=== PATIENT | male | born 1950 | race Caucasian/White ===

== ENCOUNTER 2018-01-03 20:11 | Emergency (ER) | payer MEDICARE, MEDICAID ==
[~2018-01-03] VITALS: Ht 180.3 cm; Wt 81.1 kg
[2018-01-03 20:15] VITALS: BP 155/98
== END 2018-01-03 20:56 | disposition home or self-care (01) ==
LOC: ED 20:50
DX: L60.0 Ingrowing nail (principal); F17.200 Nicotine dependence, unspecified, uncomplicated
CPT/HCPCS: 99281

== ENCOUNTER 2018-10-30 19:18 | Emergency (ER) | payer MEDICARE, MEDICAID ==
[~2018-10-30] VITALS: Ht 180.3 cm; Wt 83.5 kg
[2018-10-30 21:09] VITALS: BP 147/88
== END 2018-10-30 21:12 | disposition home or self-care (01) ==
LOC: ED 19:27
DX: M65.4 Radial styloid tenosynovitis [de Quervain] (principal)
CPT/HCPCS: 29125; 73110; 96372; 99283; J1885

== ENCOUNTER 2018-11-01 21:07 | Emergency (ER) | payer MEDICARE, MEDICAID ==
[~2018-11-01] VITALS: Ht 180.3 cm; Wt 83.5 kg
[2018-11-01 21:12] VITALS: BP 138/92
== END 2018-11-01 22:39 | disposition home or self-care (01) ==
LOC: ED 22:30
DX: M19.042 Primary osteoarthritis, left hand (principal); M19.90 Unspecified osteoarthritis, unspecified site
CPT/HCPCS: 29260; 99283

== ENCOUNTER → 2020-05-03 | Outpatient (CLI) | payer MEDICARE, MEDICAID ==
[~2020-05-03] MED LIST: TAMSULOSIN
== END | disposition home or self-care (01) ==
LOC: CFH 13:17
PROVIDERS: ATTEND Internal Medicine Cardiovascular Disease
DX: I08.0 Rheumatic disorders of both mitral and aortic valves (principal); E78.5 Hyperlipidemia, unspecified; Z87.891 Personal history of nicotine dependence
CPT/HCPCS: 93306